=== PATIENT | male | born 1995 | race Two or more races ===

== ENCOUNTER 2020-01-07 01:49 | Emergency (ER) | payer OTHER ==
[~2020-01-07] VITALS: Ht 175.3 cm; Wt 88.0 kg
[2020-01-07] MEDS ORDERED: IBUPROFEN 600MG TABLET PO STA (03:01)
[2020-01-07] MEDS ORDERED: TETANUS, DIPHTHERIA, PERTUSSIS VAC/PF 0.5ML (>7YR OLD) IM ONE (03:15)
[2020-01-07] MEDS ORDERED: BACITRACIN ZINC OINT UDPKT TOP ONE (03:15)
[2020-01-07] MEDS ORDERED: LIDOCAINE 1%/EPI 1:100,000 10 ML VIAL IJ ONE (03:15)
[2020-01-07 12:24] VITALS: BP 130/81
== END 2020-01-07 12:36 | disposition home or self-care (01) ==
LOC: ER 01:49
DX: S91.342A Puncture wound with foreign body, left foot, initial encounter (principal); W22.8XXA Striking against or struck by other objects, initial encounter; Y93.89 Activity, other specified; Y92.89 Other specified places as the place of occurrence of the external cause; Y99.8 Other external cause status
CPT/HCPCS: 73630; 87635; 90471; 90715; 99284; J3490